=== PATIENT | female | born 1970 | race Caucasian/White ===

== ENCOUNTER → 2016-11-17 | Outpatient (CLI) | payer BC ==
[~2016-11-17] MED LIST: HCTZ PO; PINDOLOL PO; POTASSIUM CL 220 MEQ PO; PRENATAL VITAMI1 TA5 PO; SYNTHROID0.1 MG/TAB PO; SYNTHROID0.112 MG/T PO
== END ==
LOC: MC.RAD 10:57
DX: Z12.31 Encounter for screening mammogram for malignant neoplasm of breast (principal)

== ENCOUNTER → 2018-01-19 | Outpatient (CLI) | payer BC | LOC: COL.RAD 12:29 | DX: M54.2 Cervicalgia (principal); M54.6 Pain in thoracic spine; R91.1 Solitary pulmonary nodule; M47.812 Spondylosis without myelopathy or radiculopathy, cervical region ==

== ENCOUNTER → 2018-07-24 | Outpatient (CLI) | payer BC | LOC: MC.RAD 11:39 | DX: Z12.31 Encounter for screening mammogram for malignant neoplasm of breast (principal) ==

== ENCOUNTER → 2019-12-11 | Outpatient (CLI) | payer BC | LOC: MC.RAD 11:28 | DX: Z12.31 Encounter for screening mammogram for malignant neoplasm of breast (principal) ==

== ENCOUNTER → 2021-10-29 | Outpatient (CLI) | payer BC | LOC: MC.RAD 11:08 | DX: Z12.31 Encounter for screening mammogram for malignant neoplasm of breast (principal) ==